=== PATIENT | female | born 1955 | race Caucasian/White ===

== ENCOUNTER 2021-12-17 22:29 | Emergency (ER) | payer SELFPAY ==
[~2021-12-17] VITALS: Ht 165.1 cm; Wt 91.0 kg
[2021-12-17] MEDS ORDERED: SODIUM CHLORIDE 0.9% 1,000 ML IV ONE (23:15)
[2021-12-18 01:37] LABS: BASOPHILS % 1.2 % (0.0-2.0); EOSINOPHILS % 2.6 % (0.0-5.0); HEMATOCRIT. 35.2 % (36.0-48.0); HEMOGLOBIN. 11.9 g/dL (12.0-16.0); LYMPHOCYTES % 36.4 % (20.0-50.0); MEAN CORPUSCULAR VOLUME 85.7 fL (81.0-99.0); MEAN PLATELET VOLUME 8.7 fl (7.4-10.4); MONOCYTES % 8.5 % (2.0-8.0); NEUTROPHILS % 51.3 % (40.0-76.0); PLATELET 252 x1000/uL (130-400); RED CELL DISTRIBUTION WIDTH 14.2 % (11.6-14.6)
[2021-12-18 01:53] LABS: CHLORIDE 108 mEq/L (98-107)
[2021-12-18 01:57] LABS: ETHANOL BLOOD < 10 mg/dL
[2021-12-18 06:00] VITALS: BP 109/57
== END 2021-12-18 05:35 | disposition home or self-care (01) ==
LOC: ER 22:29
DX: R53.1 Weakness (principal); R42 Dizziness and giddiness; R07.89 Other chest pain; F17.290 Nicotine dependence, other tobacco product, uncomplicated
CPT/HCPCS: 36415; 70450; 71045; 80053; 80320; 82962; 84484; 85025; 96360; 99285; J7030; G0480